=== PATIENT | female | born 1945 | race Caucasian/White ===

== ENCOUNTER 2017-06-30 01:58 | Emergency (ER) | payer MEDICARE ==
[~2017-06-30] VITALS: Ht 157.5 cm; Wt 60.0 kg
[~2017-06-30 01:58] MED LIST: ASPI-496 PO; CHOL100015 PO; NITR100C56 PO; ONDA8TAB12 PO; PROBIOTICS; ROSU10TA PO; TOPI200T25 PO
[2017-06-30] MEDS ORDERED: ALBUTEROL/IPRATROPIUM 2.5MG/0.5MG, 3 ML ONE (02:45)
[2017-06-30] MEDS ORDERED: ALBUTEROL/IPRATROPIUM 2.5MG/0.5MG, 3 ML NPPB ONE (03:00)
[2017-06-30] MEDS ORDERED: SODIUM CHLORIDE 0.9% 1,000ML IVBOLUS ONE (03:00)
[2017-06-30] MEDS ORDERED: SODIUM CHLORIDE FLUSH 10ML SYR IVF ONE (03:00)
[2017-06-30 03:17] LABS: HEMATOCRIT 39.9 % (34.6-47.8); HEMOGLOBIN 13.6 g/dL (11.7-16.4); WHITE BLOOD COUNT 5.7 x10^3/uL (3.4-10)
[2017-06-30] MEDS ORDERED: CETI10CA PO (03:18)
[2017-06-30] MEDS ORDERED: LACT1CAP43 PO (03:18)
[2017-06-30 03:29] LABS: BLOOD UREA NITROGEN 19 mg/dL (7-18)
[2017-06-30 03:30] LABS: IS PT STATUS REG ER OR PRE ER? YES
[2017-06-30 04:33] VITALS: BP 112/60
== END 2017-06-30 04:36 | disposition home or self-care (01) ==
LOC: ED 03:15
DX: J20.9 Acute bronchitis, unspecified (principal); I25.810 Atherosclerosis of coronary artery bypass graft(s) without angina pectoris; Z95.1 Presence of aortocoronary bypass graft; E78.5 Hyperlipidemia, unspecified; Z88.0 Allergy status to penicillin
CPT/HCPCS: 36415; 71020; 80048; 82040; 83880; 84484; 85025; 93005; 94640; 96360; 99285; J7030; J7620

== ENCOUNTER → 2018-05-18 | Outpatient (CLI) | payer MEDICARE ==
[~2018-05-18] MED LIST changes: +CETI10CA PO; +LACT1CAP43 PO
== END | disposition home or self-care (01) ==
LOC: CFH 12:55 → EDSTATUS 13:15
PROVIDERS: ATTEND Nurse Practitioner Family
DX: Z12.31 Encounter for screening mammogram for malignant neoplasm of breast (principal)
CPT/HCPCS: 77063; 77067

== ENCOUNTER → 2018-08-27 | Outpatient (CLI) | payer MEDICARE ==
[~2018-08-27] MED LIST changes: +CETI-158 PO; +CHOL100011 PO; +LUTE1CAP3 PO; +ROSU5TAB PO
== END | disposition home or self-care (01) ==
LOC: STAR 14:53
PROVIDERS: ATTEND Student in an Organized Health Care Education/Training Program
DX: Z01.818 Encounter for other preprocedural examination (principal); N20.0 Calculus of kidney
CPT/HCPCS: 93005

== ENCOUNTER 2018-09-02 13:47 | Day surgery (SDC) | payer MEDICARE ==
[~2018-09-02] VITALS: Ht 157.5 cm; Wt 61.3 kg
[~2018-09-02 13:47] MED LIST changes: +GLYCOPYRROLATE 0.2MG/1ML, 5ML ONE; +NEOSTIGMINE 1 MG/ML, 10ML ONE
[2018-09-02 14:29] VITALS: BP 122/81
[2018-09-02] MEDS ORDERED: LACTATED RINGERS 1,000 ML IV SCH (14:33)
[2018-09-02] MEDS ORDERED: MIDAZOLAM 1 MG/ML, 2ML ONE (15:57)
[2018-09-02] MEDS ORDERED: FENTANYL PF 250 MCG/5ML ONE (15:57)
[2018-09-02] MEDS ORDERED: PROPOFOL 10 MG/ML, 20ML ONE (18:00)
[2018-09-02] MEDS ORDERED: FENTANYL PF 100 MCG/2ML IV PRN (18:00)
[2018-09-02] MEDS ORDERED: HYDROmorphone 2 MG/ML, 1ML IVPush PRN (18:00)
[2018-09-02] MEDS ORDERED: HALOPERIDOL 5 MG/ML IV PRN (18:00)
[2018-09-02] MEDS ORDERED: hydrALAzine 20 MG/ML, 1ML IV PRN (18:00)
[2018-09-02] MEDS ORDERED: OXYcodone 5 MG/5 ML ORAL.SOL UDC PO PRN (18:00)
[2018-09-02] MEDS ORDERED: DEXAMETHASONE 4 MG/ML, 1ML ONE (18:00)
[2018-09-02] MEDS ORDERED: ONDANSETRON 2MG/ML, 2ML ONE (18:00)
[2018-09-02] MEDS ORDERED: ACETAMINOPHEN 325 MG TABLET PO PRN (18:00)
[2018-09-02] MEDS ORDERED: MEPERIDINE/PF 25MG/0.5ML IVPush PRN (18:00)
[2018-09-02] MEDS ORDERED: CEFAZOLIN 1,000 MG ONE (18:00)
[2018-09-02] MEDS ORDERED: ROCURONIUM 10MG/ML,5ML ONE (18:00)
[2018-09-02] MEDS ORDERED: PROMETHAZINE 25 MG/ML, 1ML IV PRN (18:00)
[2018-09-02] MEDS ORDERED: PROMETHAZINE 25 MG/ML, 1ML ONE (19:11)
== END 2018-09-02 21:10 | disposition home or self-care (01) ==
LOC: OR 13:47 → 4NOR 20:15 → OR 21:10
PROVIDERS: ATTEND Student in an Organized Health Care Education/Training Program
DX: N20.0 Calculus of kidney (principal); Z87.440 Personal history of urinary (tract) infections; Z79.82 Long term (current) use of aspirin; Z98.890 Other specified postprocedural states; Z90.710 Acquired absence of both cervix and uterus; Z88.0 Allergy status to penicillin; Z88.8 Allergy status to other drugs, medicaments and biological substances
CPT/HCPCS: 50590; J0690; J1100; J2250; J2405; J2550; J2704; J2710; J3010; J3490; J7120; G0378

== ENCOUNTER → 2018-11-20 | Outpatient (CLI) | payer MEDICARE ==
[~2018-11-20] MED LIST changes: -GLYCOPYRROLATE 0.2MG/1ML, 5ML ONE; -NEOSTIGMINE 1 MG/ML, 10ML ONE; -ROSU10TA PO; +ROSU10TA2 PO
== END | disposition home or self-care (01) ==
LOC: CFH 13:12
PROVIDERS: ATTEND Nurse Practitioner Family
DX: S46.811A Strain of other muscles, fascia and tendons at shoulder and upper arm level, right arm, initial encounter (principal); R60.0 Localized edema; M79.605 Pain in left leg; X58.XXXA Exposure to other specified factors, initial encounter; Y93.89 Activity, other specified; Y92.89 Other specified places as the place of occurrence of the external cause; Y99.8 Other external cause status

== ENCOUNTER → 2018-11-30 | Outpatient (CLI) | payer MEDICARE | END | disposition home or self-care (01) | LOC: CFH 14:01 | PROVIDERS: ATTEND Nurse Practitioner Family | DX: N63.11 Unspecified lump in the right breast, upper outer quadrant (principal); N64.1 Fat necrosis of breast; N60.01 Solitary cyst of right breast | CPT/HCPCS: 76641; 77065; G0279 ==

== ENCOUNTER → 2020-09-06 | Outpatient (CLI) | payer MEDICARE | END | disposition home or self-care (01) | LOC: CFH 16:35 | PROVIDERS: ATTEND Family Medicine | DX: N20.0 Calculus of kidney (principal); M54.5 Low back pain | CPT/HCPCS: 74176 ==

== ENCOUNTER → 2020-10-26 | Outpatient (CLI) | payer MEDICARE ==
[~2020-10-26] MED LIST changes: +LEVE500T22 PO; +MULT-124 PO; +TOPI50TA8 PO; +VIT1CAPS11 PO
[2020-10-26 15:09] LABS: BASOPHILS % (AUTO) 1 % (0-1); EOSINOPHILS % (AUTO) 6 % (1-7); LYMPHOCYTES % (AUTO) 21 % (22-44); MEAN CORPUSCULAR HGB CONC 33.5 g/dL (32.4-35.8); MEAN PLATELET VOLUME 8.3 fL (7.4-10.4); MONOCYTES % (AUTO) 7 % (2-9); NEUTROPHILS % (AUTO) 66 % (42-75); PLATELET COUNT 229 x10^3/uL (130-400); RED CELL DISTRIBUTION WIDTH 13.9 % (9.6-15.2)
[2020-10-26 15:11] LABS: MD NO
[2020-10-26 15:14] LABS: ANION GAP 5 mmol/L (5-15); CALCIUM 9.3 mg/dL (8.5-10.1); CHLORIDE 111 mmol/L (98-107); CREATININE 0.94 mg/dL (0.55-1.02)
[2020-10-26 15:24] LABS: MICROSCOPIC INDICATED
[2020-10-26 15:47] LABS: INTERNATIONAL NORMALIZED RATIO 0.95 (0.93-1.1); PROTHROMBIN TIME 10.2 Seconds (9.6-11.5)
== END | disposition home or self-care (01) ==
LOC: STAR 13:12
PROVIDERS: ATTEND Urology
DX: Z01.812 Encounter for preprocedural laboratory examination (principal); U07.1 COVID-19; N20.0 Calculus of kidney
CPT/HCPCS: 36415; 80048; 81001; 85025; 85610; 87086; 93005; U0003

== ENCOUNTER 2020-12-13 09:54 | Day surgery (SDC) | payer MEDICARE ==
[~2020-12-13] VITALS: Ht 157.5 cm; Wt 62.3 kg
[2020-12-13 10:59] VITALS: BP 117/77
[2020-12-13] MEDS ORDERED: MIDAZOLAM 1 MG/ML, 2ML ONE (11:05)
[2020-12-13] MEDS ORDERED: FENTANYL PF 100 MCG/2ML ONE ×2 (11:05→13:33)
[2020-12-13] MEDS ORDERED: ONDANSETRON 2MG/ML, 2ML ONE (11:09)
[2020-12-13] MEDS ORDERED: CEFAZOLIN 1,000 MG ONE ×2 (11:09)
[2020-12-13] MEDS ORDERED: LIDOCAINE-MPF 2% ,5ML ONE (11:09)
[2020-12-13] MEDS ORDERED: PROPOFOL 10 MG/ML, 20ML ONE (11:09)
[2020-12-13] MEDS ORDERED: tylenol PO (11:16)
[2020-12-13] MEDS ORDERED: CHLORHEXIDINE 15 ML UDC ONE (11:21)
[2020-12-13] MEDS ORDERED: CHLORHEXIDINE 15 ML UDC PO ONE (11:30)
[2020-12-13] MEDS ORDERED: DIPHENHYDRAMINE 50 MG/ML, 1ML IVPush PRN (11:30)
[2020-12-13] MEDS ORDERED: ONDANSETRON 2MG/ML, 2ML IVPush PRN (11:30)
[2020-12-13] MEDS ORDERED: HYDROmorphone 1 MG/ML, 1ML INJ IVPush PRN (11:30)
[2020-12-13] MEDS ORDERED: MEPERIDINE/PF 25MG/0.5ML IVPush PRN (11:30)
[2020-12-13] MEDS ORDERED: ACETAMINOPHEN 325 MG TABLET PO PRN (11:30)
[2020-12-13] MEDS ORDERED: FENTANYL PF 100 MCG/2ML IV PRN (11:30)
[2020-12-13] MEDS ORDERED: LACTATED RINGERS 1,000 ML IV SCH (11:30)
[2020-12-13] MEDS ORDERED: OXYcodone 5 MG/5 ML ORAL.SOL UDC PO PRN (11:30)
[2020-12-13] MEDS ORDERED: ACETAMINOPHEN 650 MG/20.3 ML UDC ONE (13:27)
[2020-12-13] MEDS ORDERED: OXYcodone 5 MG/5 ML ORAL.SOL UDC ONE (13:36)
== END 2020-12-13 17:15 | disposition home or self-care (01) ==
LOC: OR 09:54 → OUT 17:15
PROVIDERS: ATTEND Urology
DX: N20.0 Calculus of kidney (principal); I25.10 Atherosclerotic heart disease of native coronary artery without angina pectoris; I10 Essential (primary) hypertension; G40.909 Epilepsy, unspecified, not intractable, without status epilepticus; Z88.0 Allergy status to penicillin; Z91.048 Other nonmedicinal substance allergy status; Z20.822 Contact with and (suspected) exposure to COVID-19; Z95.5 Presence of coronary angioplasty implant and graft; Z72.89 Other problems related to lifestyle; Z87.891 Personal history of nicotine dependence; Z98.890 Other specified postprocedural states
CPT/HCPCS: 50590; 87635; J0690; J2250; J2405; J2704; J3010; J7120